=== PATIENT | male | born 1975 | race Caucasian/White ===

== ENCOUNTER 2024-05-31 03:08 | Observation (INO) | payer OTHER ==
[2024-05-31 04:00] LABS: ABSOLUTE IMMATURE GRANULOCYTES 0.03 x10^3/uL (0.0-0.031); BASOPHILS # 0.06 x10^3/uL (0.01-0.08); EOSINOPHILS # 0.14 x10^3/uL (0.04-0.54); HEMATOCRIT 39.4 % (40.1-51.0); HEMOGLOBIN 12.6 g/dL (13.7-17.5); MEAN CELL VOLUME 88.3 fl (79.0-92.2); MEAN PLT VOLUME 10.9 fl (9.4-12.4); MONOCYTE # 0.51 x10^3/uL (0.30-0.82); MONOCYTE % 7.2 % (5.3-12.2); PLATELET COUNT # 207 x10^3/uL (163-337); RDW 13.5 % (12.1-15.9)
[2024-05-31 04:27] LABS: CALCIUM 8.9 mg/dL (8.5-10.1)
[2024-05-31 04:28] LABS: ALBUMIN 3.6 g/dl (3.4-5.0); BLOOD UREA NITROGEN 12.2 mg/dL (7-18)
[2024-05-31 04:31] LABS: CREATININE 0.8 mg/dL (0.55-1.3)
[2024-05-31 04:32] LABS: BILIRUBIN,TOTAL 0.8 mg/dL (0.2-1)
[2024-05-31 04:33] LABS: TOT PROT 6.9 g/dl (6.4-8.2)
[2024-05-31 05:21] LABS: HIV INTERPRETATION NEGATIVE (NEGATIVE)
[2024-05-31] MEDS ORDERED: ASPIRIN 81 MG CHEWABLE TABLETS ONE (05:43)
[2024-05-31] MEDS: ASPIRIN 81 MG CHEWABLE TABLETS PO ONE (05:52)
[2024-05-31] MEDS ORDERED: ACETAMINOPHEN INJECTION 100 ML ONE (06:39)
[2024-05-31] MEDS ORDERED: PANTOPRAZOLE SODIUM 40 MG/100 ML BAG IVPB ONE (06:39)
[2024-05-31] MEDS: ACETAMINOPHEN 1000 MG/100 ML BAG IVPB ONE (06:47)
[2024-05-31] MEDS: PANTOPRAZOLE SODIUM 40 MG VIAL IVPUSH ONE (06:47)
[2024-05-31] MEDS: LISINOPRIL 5 MG TABLET PO SCH (09:34)
[2024-05-31] MEDS: metFORMIN HCL 500 MG TABLET (FP) PO SCH (09:34)
[2024-05-31] MEDS: CLOPIDOGREL BISULFATE 75 MG TABLET (FP) PO SCH (09:34)
[2024-05-31] MEDS: ATENOLOL 50 MG TABLET (FP) PO SCH (09:35)
[2024-05-31] MEDS: PANTOPRAZOLE 40 MG TABLET PO SCH (17:43)
[2024-05-31 20:01] VITALS: RESP 18
[2024-05-31] MEDS: ATORVASTATIN CA 80 MG TABLET (FP) PO SCH (21:33)
[2024-05-31] MEDS: INSULIN ASPART SLIDING SCALE (NOVOLOG) 1 VIAL SQ SCH (21:45)
[2024-06-01 07:25] LABS: POTASSIUM 4.2 mmol/L (3.5-5.1)
[2024-06-01 07:27] LABS: CALCIUM 8.9 mg/dL (8.5-10.1)
[2024-06-01 07:28] LABS: ALBUMIN 3.6 g/dl (3.4-5.0); BLOOD UREA NITROGEN 7.8 mg/dL (7-18)
[2024-06-01 07:31] LABS: CREATININE 0.7 mg/dL (0.55-1.3)
[2024-06-01 07:33] LABS: BILIRUBIN,TOTAL 0.8 mg/dL (0.2-1); TOT PROT 6.9 g/dl (6.4-8.2)
[2024-06-01 07:51] LABS: ABSOLUTE IMMATURE GRANULOCYTES 0.03 x10^3/uL (0.0-0.031); BASOPHILS # 0.04 x10^3/uL (0.01-0.08); EOSINOPHIL % 2.5 % (0.8-7.0); EOSINOPHILS # 0.16 x10^3/uL (0.04-0.54); HEMATOCRIT 39.3 % (40.1-51.0); HEMOGLOBIN 12.6 g/dL (13.7-17.5); MCHC 32.1 g/dl (32.3-36.5); MEAN CELL VOLUME 89.9 fl (79.0-92.2); MEAN PLT VOLUME 11.4 fl (9.4-12.4); MONOCYTE # 0.45 x10^3/uL (0.30-0.82); MONOCYTE % 6.9 % (5.3-12.2); PLATELET COUNT # 198 x10^3/uL (163-337)
[2024-06-01] MEDS: ASPIRIN 81 MG CHEWABLE TABLETS PO SCH (10:06)
[2024-06-01 11:00] VITALS: BP 110/70; PULSE 76; TEMP 98.2
== END 2024-06-01 12:09 | disposition home or self-care (01) ==
LOC: JER 03:08 → JERBED 05:00 → J4W 07:38
PROVIDERS: ADMIT Hospitalist; ATTEND Internal Medicine
PROC: 3E033NZ Introduction of Analgesics, Hypnotics, Sedatives into Peripheral Vein, Percutaneous Approach (ICD-10-PCS; principal; 2024-05-31)
PROC: 3E033GC Introduction of Other Therapeutic Substance into Peripheral Vein, Percutaneous Approach (ICD-10-PCS; 2024-05-31)
DX: I25.10 Atherosclerotic heart disease of native coronary artery without angina pectoris (principal); I11.9 Hypertensive heart disease without heart failure; E78.5 Hyperlipidemia, unspecified; R01.1 Cardiac murmur, unspecified; F41.9 Anxiety disorder, unspecified; G89.29 Other chronic pain; M54.50 Low back pain, unspecified; R14.0 Abdominal distension (gaseous); Z87.891 Personal history of nicotine dependence
CPT/HCPCS: 0241U-QW; 36415; 71045-TC-FY; 76705-TC; 80053; 80061; 82550; 82553; 82962; 83036; 83880; 84443; 84484; 85025; 86803; 87389; 93005; 93010; 96374; 96375; 99285-25; G0378; J0131